=== PATIENT | female | born 1950 | race American Indian/Alaskan Native ===

== ENCOUNTER 2017-05-20 05:41 | Day surgery (SDC) | payer MEDICARE ==
[2017-05-20 06:47] LABS: Hematocrit 38.2 % (30.3-42.9); Hemoglobin 12.7 gm/dl (10.1-14.3); Mean Corpuscular HGB Conc 33 % (30-34); Mean Corpuscular Volume 71 fl (79-97); Platelet Count 134 K/mm3 (140-440); Red Cell Distribution Width 16.5 % (13.2-15.2); White Blood Count 4.7 K/mm3 (4.5-11.0)
[2017-05-20 06:51] LABS: Mean Corpuscular Hemoglobin 23 pg (28-32)
[2017-05-20 06:55] LABS: INR 1.07 (0.87-1.13)
[2017-05-20 06:57] LABS: Anion Gap 19 mmol/L; BUN/Creatinine Ratio 28; Blood Urea Nitrogen 28 mg/dL (7-17); Carbon Dioxide 26 mmol/L (22-30); Glucose 111 mg/dL (65-100); Potassium 3.4 mmol/L (3.6-5.0); Sodium 139 mmol/L (137-145)
[2017-05-20] MEDS ORDERED: NACL 0.9% 500 ML 500 ML IV SCH (07:00)
[2017-05-20] MEDS ORDERED: NITROGLYCERIN SYRINGE 3 ML ONE (07:09)
[2017-05-20] MEDS ORDERED: HEPARIN/NS 5000 UNIT/500ML(CATH LAB) 1,000 ML IR ONE (07:09)
[2017-05-20] MEDS ORDERED: HEPARIN 10,000 UNITS/10 ML ONE (07:09)
[2017-05-20] MEDS ORDERED: CALAN ONE (07:09)
[2017-05-20] MEDS ORDERED: XYLOCAINE 2% INFILTRATI ONE ×2 (07:09→07:24)
[2017-05-20] MEDS ORDERED: SUBLIMAZE ONE (07:10)
[2017-05-20] MEDS ORDERED: VERSED ONE (07:10)
[2017-05-20] MEDS ORDERED: KCL 10MEQ/100ML 10 MEQ/100 ML BAG IV ONE (07:14)
[2017-05-20] MEDS ORDERED: K-DUR PO ONE ×2 (07:21→07:22)
[2017-05-20 08:22] LABS: Blastocytes % (Manual) 0 %
[2017-05-20 08:23] LABS: Anisocytosis 1+; Diff Status Complete; Hypochromasia 1+; Platelet Estimate Consistent w Auto; Target Cells Rare
--- NOTE | 2017-05-20 10:14 | Cardiac Catherization Report ---
HISTORY: The patient is a 67-year-old female who has been experiencing chest pain suggestive of angina with mild activity. She underwent a stress test that was abnormal and she continues to have chest pain on 2 antianginal medications. PROCEDURE: Left heart catheterization, ventriculography, and coronary angiography via the right radial artery using 5-Telugu Tremaine catheters and the pigtail catheter. COMPLICATIONS: None. ESTIMATED BLOOD LOSS: 10-20 mL. SEDATION: Intravenous Versed and fentanyl. TISSUE SAMPLES: None. PREPROCEDURE DIAGNOSIS: Class 3 angina. POSTPROCEDURE DIAGNOSIS: Moderate coronary artery disease. HEMODYNAMICS: Central aortic pressure 132/79, left ventricular pressure 132/21, i.e., that is the end-diastolic pressure. ANGIOGRAPHIC RESULTS: 1. Left ventricle: The ventriculogram reveals a normal sized left ventricle, which is hypercontractile. The ejection fraction is 65-70%. There is no suggestion of left ventricular hypertrophy. 2. Right coronary artery: This is the dominant vessel and there are mild intimal irregularities. 3. Left coronary artery: Very mild calcification. The left main and circumflex are free of remarkable lesions. There are only mild intimal irregularities. The LAD contains a mid 50% stenosis and the first diagonal branch is a large vessel with a very proximal 50% stenosis. FINAL IMPRESSION: Moderate atherosclerosis in the left anterior descending system with normal left ventricular function. There did not appear to be any severe lesions to explain this patient's chest pain. Consider other organ systems as possible etiology of this patient's chest pain. Also, consider coronary spasm. PLAN: Aggressive medical therapy, CAD risk factor modification, office followup within a few days. Consider a GI workup. JOB# [id number] MELODY/JAY
[2017-05-20 10:46] VITALS: BP 103/78
== END 2017-05-20 11:45 | disposition home or self-care (01) ==
LOC: CATHLABREC 05:41
PROVIDERS: ATTEND Internal Medicine
DX: I25.118 Atherosclerotic heart disease of native coronary artery with other forms of angina pectoris (principal); I10 Essential (primary) hypertension; F32.9 Major depressive disorder, single episode, unspecified; Z79.899 Other long term (current) drug therapy; Z87.891 Personal history of nicotine dependence; Z90.710 Acquired absence of both cervix and uterus; Z98.890 Other specified postprocedural states
CPT/HCPCS: 36415; 80048; 85007; 85025; 85610; 85730; 93005; 93010; 93458; 99156; C1894; J1644; J2250; J3010; J7040; Q9967